=== PATIENT | female | born 1995 | race Caucasian/White ===

== ENCOUNTER 2021-06-18 11:20 | Outpatient (REF) | payer OTHER, SELFPAY | END 2021-06-18 11:21 | disposition home or self-care (01) | LOC: HO.LNP 11:20 | PROVIDERS: Visit Provider Internal Medicine | DX: J06.9 Acute upper respiratory infection, unspecified (principal); Z20.822 Contact with and (suspected) exposure to COVID-19 | CPT/HCPCS: U0003; U0005 ==

== ENCOUNTER 2023-06-01 07:33 | Outpatient (AMB) | payer OTHER, SELFPAY ==
[2023-06-01 07:41] VITALS: BP 110/66; PULSE 79; O2SAT 97; BMI 23.5
--- NOTE | 2023-06-01 07:41 | A.OFFPC_ITS ---
Vital Signs 06/01/23 07:41 Height 5 ft 7 in Weight 150 lb BMI 23.5 BP 110/66 Blood Pressure Location Lt brachial Position Sitting Pulse 79 Pulse Source Pulse Oximeter Pulse Oximetry (%) 97 Oxygen Delivery Method Room Air Intake Visit Reasons: New patient-Requesting physical Intake Note: Pt is here today for a New patient visit PE. 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 Pt moved from [place] in 2020 to attend [employer] school. [place] [facility] Family History Father No problems noted. Mother No problems noted. 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 1. Little interest or pleasure in doing things: several days 2. Feeling down, depressed, or hopeless: several days 3. Trouble falling or staying asleep, or sleeping too much: nearly every day 4. Feeling tired or having little energy: nearly every day 5. Poor appetite or overeating: not at all 6. Feeling bad about yourself - or that you are a failure or have let yourself or your family down: not at all 7. Trouble concentrating on things, such as reading the newspaper or watching television: nearly every day 8. Moving or speaking so slowly that other people could have noticed. Or the opposite - being so fidgety or restless that you have been moving around a lot more than usual: not at all 9. Thoughts that you would be better off or of hurting yourself in some way: not at all Total score: 11 Source: Developed by Drs. Dominick Gutierrez, Cathy Keller, Ga Chairez and colleagues, with an educational barry from [email or web address]. Thrive Questionnaire Date Thrive assessed: 06/01/23 I am a: Patient What is your living situation today?: I have a steady place to live Within the past 12 months, did the food you bought not last and you didn't have the money to get more?: Never true Within the past 12 months, did you worry whether your food would run out before you got money to buy more?: Never true Do you have trouble paying for medicines?: Yes Do you have trouble getting transportation to medical appointments?: No Do you have trouble paying your heating and electricity bill?: No Do you have trouble taking care of your child, family member or friend?: No Do you have trouble with day-to-day activities such as bathing, preparing meals, shopping, managing finances, etc.?: No Are you currently unemployed and looking for a job?: No Are you interested in more education?: Yes Please select the resources that you would like help with: Paying for medicine and Education Currently or been in a relationship where the following occur: no concerns reported AUDIT C Alcohol Use Questionnaire (AUDIT-C) 1. How often do you have a drink containing alcohol?: Monthly or less 2. How many drinks containing alcohol do you have on a typical day when you are drinking?: 1 or 2 3. How often do you have six or more drinks on one occasion?: Never Total Score: 1 UMU-7 AMB Questionnaire UMU-7 Date UMU - 7 assessed: 06/01/23 Feeling nervous, anxious, or on edge: 2 = More than half the days Not being able to stop or control worryin = More than half the days Worrying too much about different things: 2 = More than half the days Trouble relaxin = Several days Being so restless that it is hard to sit still: 0 = Not at all Becoming easily annoyed or irritable: 1 = Several days Feeling afraid as if something awful might happen: 2 = More than half the days Total UMU-7 score (0-4 normal; 5-9 mild; 10-14 moderate; 15-21 severe): 10 Source: Developed by Drs. Dominick Gutierrez, Cathy Keller, Ga Chairez and colleagues, with an educational barry from [email or web address]. Review of Systems Const All systems reviewed & are unremarkable except as noted in HPI and below Reports no additional complaints Eyes Reports no additional complaints ENT Reports no additional complaints Card Reports no additional complaints Resp Reports no additional complaints GI Reports no additional complaints Reports no additional complaints Physical exam (Primary Care) Vital Signs: Last Vital Signs Pulse 79 06/01/23 07:41 BP 110/66 06/01/23 07:41 Pulse Ox 97 06/01/23 07:41 Oxygen Delivery Method Room Air 06/01/23 07:41 BMI result Body Mass Index 23.5 Tobacco/Smoking Status: Tobacco use Status Tobacco use date assessed 06/01/23 06/01/23 07:48 Patient Tobacco Use Status Never used Tobacco 06/01/23 08:38 e-Cigarette/Vaping Use Former Use 06/01/23 08:38 Currently or been in a relationship where the following occur: no concerns reported Const General: no acute distress HENMT Ears: hearing grossly normal bilaterally Face and sinus: Yes normal facial exam Throat: Yes posterior oropharynx normal Eyes General: appearance normal, both eyes and all related structures Neck Neck: Yes no lymphadenopathy and Yes supple Chest Breast/axilla inspection: normal inspection of the breasts Breast/axilla palpation: normal palpation of the breasts Resp Effort & Inspection: normal respiratory effort Auscultation: clear to auscultation bilaterally Cardio Rhythm: regular rhythm Heart sounds: S1 normal heart sound present and S2 normal heart sound present GI Inspection: Yes normal to inspection Palpation (GI): Soft to palpation Percussion: Yes normal to percussion Auscultation: normal bowel sounds Assessment and Plan Assessment & Plan (1) Alopecia: Comment: Androgenic, on spironolactone and dutasteride Code(s): L65.9 - Nonscarring hair loss, unspecified (2) ADHD: Comment: on Cymbalta Code(s): F90.9 - Attention-deficit hyperactivity disorder, unspecified type Plan: f/u with counselor from [place] (3) Normal pelvic exam: Comment: in [place] 2018 Code(s): Z01.419 - Encounter for gynecological examination (general) (routine) without abnormal findings Plan: Pap smear was done today (4) Annual physical exam: Code(s): Z.00 - Encounter for general adult medical examination without abnormal findings Plan: Well-balanced diet regular physical activity discussed with the patient. She will have a fasting blood work today Orders: Orders Complete Blood Count Auto Diff Today Z00.00 - Encounter for general adult medical examination without abnormal findings Comprehensive [place]. Panel Fast Today Z00.00 - Encounter for general adult medical examination without abnormal findings Lipid Panel Today Z00.00 - Encounter for general adult medical examination without abnormal findings TSH reflex Free T4 Today Z00.00 - Encounter for general adult medical examination without abnormal findings DHEA Sulfate Today Z00.00 - Encounter for general adult medical examination without abnormal findings, Z01.419 - Encounter for gynecological examination (general) (routine) without abnormal findings UA w Microscopic Today Z00.00 - Encounter for general adult medical examination without abnormal findings, Z01.419 - Encounter for gynecological examination (general) (routine) without abnormal findings HIV Ab/Ag Today Z00.00 - Encounter for general adult medical examination without abnormal findings, Z01.419 - Encounter for gynecological examination (general) (routine) without abnormal findings Syphilis Screen Today Z00.00 - Encounter for general adult medical examination without abnormal findings, Z01.419 - Encounter for gynecological examination (general) (routine) without abnormal findings CT NG by PCR Today Z00.00 - Encounter for general adult medical examination without abnormal findings, Z01.419 - Encounter for gynecological examination (general) (routine) without abnormal findings Bacterial Vaginosis Panel Today Z00.00 - Encounter for general adult medical examination without abnormal findings, Z01.419 - Encounter for gynecological examination (general) (routine) without abnormal findings Pap Smear Today Z00.00 - Encounter for general adult medical examination without abnormal findings Medications: New duloxetine (Cymbalta) 60 mg PO DAILY 90 caps 3RF dutasteride 0.5 mg PO DAILY 90 caps 3RF spironolactone 200 mg (2 x 100 mg) PO DAILY 90 tabs 3RF Coding Level of Care Code Est Pt Prev Care 18-39y(29109) Diagnoses Alopecia L65.9 ADHD F90.9 Normal pelvic exam Z01.419 Annual physical exam Z00.00
== END 2023-06-01 09:34 | disposition home or self-care (01) ==
PROVIDERS: Visit Provider Internal Medicine
DX: Z00.00 Encounter for general adult medical examination without abnormal findings (principal); L65.9 Nonscarring hair loss, unspecified; F90.9 Attention-deficit hyperactivity disorder, unspecified type
CPT/HCPCS: 99395

== ENCOUNTER 2023-06-01 08:42 | Outpatient (REF) | payer OTHER, SELFPAY ==
[2023-06-03 13:30] LABS: BV Int Neg Control Negative (Negative); BV Int Pos Control Positive (Positive)
== END 2023-06-01 08:43 | disposition home or self-care (01) ==
LOC: HO.LAB 08:42
PROVIDERS: Visit Provider Internal Medicine
DX: Z01.419 Encounter for gynecological examination (general) (routine) without abnormal findings (principal)
CPT/HCPCS: 87480; 87510; 87660

== ENCOUNTER 2023-06-01 08:42 | Outpatient (REF) | payer OTHER, SELFPAY ==
[2023-06-06 21:28] LABS: HPV mRNA E6/E7 Detected (Not Detected)
== END 2023-06-01 08:43 | disposition home or self-care (01) ==
LOC: HO.LNP 08:42
PROVIDERS: Visit Provider Internal Medicine
DX: Z12.4 Encounter for screening for malignant neoplasm of cervix (principal); Z11.51 Encounter for screening for human papillomavirus (HPV)
CPT/HCPCS: 87624; 88142

== ENCOUNTER 2024-04-01 12:56 | Outpatient (REF) | payer OTHER, SELFPAY ==
[2024-04-01 16:32] LABS: MANUAL DIFF FLAG NO
[2024-04-01 16:33] LABS: Basophils Absolute Auto 0.1 X10*3/uL (0.0-0.2); Basophils Percent Auto 0.7 % (0-2); Eosinophils Absolute Auto 0.1 X10*3/uL (0.0-0.4); Eosinophils Percent Auto 0.7 % (0-4); Hematocrit 43.2 % (37.0-47.0); Hemoglobin 15.2 g/dl (12.0-16.0); Imm Gran Abs Auto 0.03 X10*3/uL (0.00-0.03); Imm Gran Pct Auto 0.4 % (0.0-0.4); Lymphocytes Absolute Auto 2.2 X10*3/uL (1.2-4.9); Lymphocytes Percent Auto 25.5 % (20-40); Mean Corpuscular HGB Conc 35.2 g/dl (31.0-35.0); Mean Corpuscular Hemoglobin 32.8 pg (27.0-33.0); Mean Corpuscular Volume 93.3 fL (80.0-98.0); Mean Platelet Volume 9.5 fL (9.4-12.3); Monocytes Absolute Auto 0.5 X10*3/uL (0.1-1.2); Monocytes Percent Auto 5.9 % (2-11); Neutrophils Absolute Auto 5.7 x10*3/uL (2.0-8.3); Neutrophils Percent Auto 66.8 % (45-73); Platelet Count 461 X10*3/uL (160-400); Red Blood Count 4.63 X10*6/uL (4.20-5.50); Red Cell Distribution Width 11.9 % (11.0-16.0); White Blood Count 8.5 X10*3/uL (4.8-10.8)
[2024-04-01 16:57] LABS: Alanine Aminotransferase 10 U/L (0-31); Albumin Level 4.7 g/dL (3.5-5.0); Alkaline Phosphatase 59 U/L (39-117); Anion Gap 15 (12-20); Aspartate Amino Transferase 14 U/L (5-31); Bilirubin Total 0.8 mg/dL (0.0-1.0); Blood Urea Nitrogen 10 mg/dL (9-16); Calcium 10.1 mg/dL (8.4-10.2); Carbon Dioxide 23 mmol/L (22-29); Chloride 100 mmol/L (96-108); Cholesterol 218 mg/dL (<200); Estimated Glomerular Filt Rate > 60; Glucose Fasting 82 mg/dL (60-99); HDL Cholesterol 104 mg/dL (>40); LDL Cholesterol Calculated 102 mg/dL (<100); Potassium 3.9 mmol/L (3.3-5.1); Sodium 134 mmol/L (135-145); Total Protein 8.4 g/dL (6.5-8.0); Triglycerides 61 mg/dL (<150)
[2024-04-01 17:06] LABS: Appearance Urine Clear; Color Urine Yellow; Glucose Urine UA Negative (Negative); Leukocyte Esterase Urine Negative (Negative); Nitrite Urine Negative (Negative); Urine Blood Negative (Negative); Urine Ketones Trace mg/dL (Negative); Urine Protein Negative (Neg-Trace)
[2024-04-01 17:11] LABS: TSH reflex Free T4 1.46 uIU/mL (0.32-4.0)
[2024-04-01 17:12] LABS: Bacteria Urine None Seen (None Seen); Hyaline Casts Urine 0-2 /LPF (0-2); RBC Urine 0-2 /HPF (0-2); Squamous Epithelial Cell Urine 0-2 /HPF (0-2); WBC Urine 0-5 /HPF (0-5)
[2024-04-01 18:21] LABS: CT PCR NOT DETECTED (Not Detect.); NG PCR NOT DETECTED (Not Detect.)
[2024-04-02 08:14] LABS: HIV AB/AG Nonreactive (Nonreactive); HIV Num 1 0.05 S/CO (0.00-0.99)
[2024-04-02 08:15] LABS: Syphilis Screen Nonreactive (Nonreactive)
[2024-04-03 00:10] LABS: DHEA Sulfate 147 mcg/dL (14-349)
== END 2024-04-01 12:57 | disposition home or self-care (01) ==
LOC: HO.HMGCLDS 12:56
PROVIDERS: PCP Internal Medicine; Visit Provider Internal Medicine
DX: Z00.00 Encounter for general adult medical examination without abnormal findings (principal)
CPT/HCPCS: 0353U; 80053; 80061; 81001; 82627; 84443; 85025; 86780; 87389

== ENCOUNTER 2024-12-11 13:08 | Outpatient (AMB) | payer OTHER, SELFPAY ==
[2024-12-11 13:35] VITALS: BP 116/70; PULSE 85; RESP 18; TEMP 36.9; O2SAT 98; BMI 22.2
--- NOTE | 2024-12-11 13:35 | MHC.PC.OV ---
Vital Signs 12/11/24 13:35 Height 5 ft 7 in Weight 142 lb BMI 22.2 BP 116/70 Blood Pressure Location Lt brachial Position Sitting Respiration 18 Pulse 85 Pulse Source Pulse Oximeter Temp 98.5 F Temp Source Oral Pulse Oximetry (%) 98 Oxygen Delivery Method Room Air Intake Visit Reasons: PE Intake Note: Pt is here today for PE. Allergies No Known Allergies Allergy (Verified 12/11/24 13:44) Medication List - Last Reconciled 12/11/24 by Lyndsey Chavez MD bupropion HCl XL 300 mg PO QAM [[place] control PO] dutasteride 0.5 mg PO DAILY spironolactone 200 mg (2 x 100 mg) PO DAILY trazodone 25 mg PO BEDTIME PRN Tobacco use date assessed: 12/11/24 Dental Screening Dental Screen Date: 12/11/24 Did you have a dental visit in the last 12 months?: Yes Did you have a dental problem in the last 6 months where you did not have access to dental care?: No Was dental information given to patient?: Patient has dentist HPI PE HPI Details Pt presents for PE. PFSH Surgical History (Updated 12/11/24 @ 13:48 by CAMILA Haines) No pertinent past surgical history Family History Father No problems noted. Mother No problems noted. 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 1. Little interest or pleasure in doing things: not at all 2. Feeling down, depressed, or hopeless: several days 3. Trouble falling or staying asleep, or sleeping too much: several days 4. Feeling tired or having little energy: not at all 5. Poor appetite or overeating: several days 6. Feeling bad about yourself - or that you are a failure or have let yourself or your family down: several days 7. Trouble concentrating on things, such as reading the newspaper or watching television: several days 8. Moving or speaking so slowly that other people could have noticed. Or the opposite - being so fidgety or restless that you have been moving around a lot more than usual: not at all 9. Thoughts that you would be better off or of hurting yourself in some way: not at all Total score: 5 Depression Screening Interpretation: Negative Depression Screening Done: Yes 36208 - PHQ-9 Billing: Yes Source: Developed by Drs. Dominick Gutierrez, Cathy Keller, Ga Chairez and colleagues, with an educational barry from [employer]. Thrive Questionnaire Date Thrive assessed: 12/11/24 I am a: Patient What is your living situation today?: I have a steady place to live Within the past 12 months, did the food you bought not last and you didn't have the money to get more?: Never true Within the past 12 months, did you worry whether your food would run out before you got money to buy more?: Never true Do you have trouble paying for medicines?: No Do you have trouble getting transportation to medical appointments?: No Do you have trouble paying your heating and electricity bill?: No Do you have trouble taking care of your child, family member or friend?: No Do you have trouble with day-to-day activities such as bathing, preparing meals, shopping, managing finances, etc.?: No Are you currently unemployed and looking for a job?: No Are you interested in more education?: No THRIVE Score: 0 AUDIT C Alcohol Use Questionnaire (AUDIT-C) 1. How often do you have a drink containing alcohol?: 2-4 times a month 2. How many drinks containing alcohol do you have on a typical day when you are drinking?: 3 or 4 3. How often do you have six or more drinks on one occasion?: Less than monthly Total Score: 4 UMU-7 AMB Questionnaire UMU-7 Date UMU - 7 assessed: 06/01/23 Feeling nervous, anxious, or on edge: 1 = Several days Not being able to stop or control worryin = Several days Worrying too much about different things: 3 = Nearly every day Trouble relaxin = Several days Being so restless that it is hard to sit still: 0 = Not at all Becoming easily annoyed or irritable: 1 = Several days Feeling afraid as if something awful might happen: 1 = Several days Total UMU-7 score (0-4 normal; 5-9 mild; 10-14 moderate; 15-21 severe): 8 Source: Developed by Drs. Dominick Gutierrez, Cathy Keller, Ga Chairez and colleagues, with an educational barry from [employer]. UMU-7 Assessment Billing UMU-7 Assessment Tool: UMU-7 Assessment 14279 Review of Systems Const All systems reviewed & are unremarkable except as noted in HPI and below Reports no additional complaints Eyes Reports no additional complaints ENT Reports no additional complaints Card Reports no additional complaints Resp Reports no additional complaints GI Reports no additional complaints Reports no additional complaints Physical exam (Primary Care) Vital Signs: Last Vital Signs Temp 98.5 F 12/11/24 13:35 Pulse 85 12/11/24 13:35 Resp 18 12/11/24 13:35 BP 116/70 12/11/24 13:35 Pulse Ox 98 12/11/24 13:35 Oxygen Delivery Method Room Air 12/11/24 13:35 BMI result Body Mass Index 22.2 Tobacco/Smoking Status: Tobacco use Status Tobacco use date assessed 12/11/24 12/11/24 13:54 Patient Tobacco Use Status Never used Tobacco 12/11/24 13:54 e-Cigarette/Vaping Use Former Use 12/11/24 13:36 PHQ-9: PHQ-9 Score PHQ-9: Total score 5 12/11/24 13:54 Depression Screening Interpretation: Negative Thrive Assessment: Date of Thrive Assessment Date Thrive assessed 12/11/24 12/11/24 13:54 Const General: no acute distress HENMT Head: Yes normal to inspection Ears: TM's normal bilaterally Mouth: Normal oral and palatal mucosa present Throat: Yes posterior oropharynx normal Eyes General: appearance normal, both eyes and all related structures Neck Neck: Yes no lymphadenopathy and Yes supple Resp Effort & Inspection: normal respiratory effort Auscultation: clear to auscultation bilaterally Cardio Rhythm: regular rhythm Heart sounds: S1 normal heart sound present and S2 normal heart sound present GI Inspection: Yes normal to inspection Palpation (GI): Soft to palpation Percussion: Yes normal to percussion Auscultation: normal bowel sounds Coding Level of Care Code Est Pt Prev Care 18-39y(71852) Diagnoses Alopecia L65.9 Annual physical exam Z. ASCUS with positive high risk HPV cervical R87.610; R87.810 Additional Codes UMU-7 Assessment Billing - UMU-7 Assessment Tool: UMU-7 Assessment 02880 ([id number]) PHQ-9 - 35296 - PHQ-9 Billing: Yes ([id number]) Assessment & Plan Assessment & Plan (1) Alopecia: Comment: Androgenic, on spironolactone and dutasteride Code(s): L65.9 - Nonscarring hair loss, unspecified Category: Medical Plan: f/u with dermatology (2) Annual physical exam: Code(s): Z. 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, s/p colposcopy 2023 Code(s): R87.610 - Atypical squamous cells of undetermined significance on cytologic smear of cervix (ASC-US); R87.810 - Cervical high risk human papillomavirus (HPV) DNA test positive Category: Medical Plan: Follow-up with route salesman Orders: Orders Complete Blood Count Auto Diff Today Z00.00 - Encounter for general adult medical examination without abnormal findings Vitamin B12 and Folate Today Z00.00 - Encounter for general adult medical examination without abnormal findings IRON PROFILE Today Z00.00 - Encounter for general adult medical examination without abnormal findings Vitamin D 25-OH Total Today Z00.00 - Encounter for general adult medical examination without abnormal findings UA w Microscopic Today Z00.00 - Encounter for general adult medical examination without abnormal findings Comprehensive [place]. Panel Fast Today Z00.00 - Encounter for general adult medical examination without abnormal findings Lipid Panel Today Z00.00 - Encounter for general adult medical examination without abnormal findings TSH reflex Free T4 Today Z00.00 - Encounter for general adult medical examination without abnormal findings Referrals Dermatology Referral L65.9 - Nonscarring hair loss, unspecified
--- OUTSIDE RECORDS SUMMARY | 2024-12-11 15:55 | XMS_ITS ---
Author Organization [facility] Address [address] [place] [address] Care Team Providers Care Activities Director Name Role Phone Lyndsey Chavez MD Primary Care Provider Unavaila Kaylin Weaver [phone] REASON FOR VISIT Non healing toe Encounters Encounter Location Date Provider Diagnosis [facility] [address] [facility] [address] [place] [id number] 10/06/2024 Kaylin Ferreira Plan Of Treatment No Information Progress Notes * Ila ROGERSDOB:1995 (29 yo F)Acc No.[id number]:10/06/2024 Patient:?Mitzi ROGERSica :1995???Age:29 Y???Sex:Female [address]:[address] [place] [address], [id number] * true * Date:? Generated for Samantha duval/Ann Marie/eTransmitting on:?12/11/2024 03:54 PM EST
--- OUTSIDE RECORDS SUMMARY | 2024-12-11 15:55 | XMS_ITS ---
Author Organization [facility] Ethan rubio [place] Address [address] [facility] [place] [address] Care Team Providers Care Office Clerk Name Role Phone Lyndsey Chavez MD Primary Care Provider UnavailKaylin Naidu Unavailable [phone] Allergies No Known Allergies REASON FOR VISIT Ingrown Nail Medications Medication SIG (Take, Route, Fr equency, Duration) Notes Start Date End Date Status Cymbalta 20 MG 1 capsule Orally Once a day 20mg Active Vyvanse Active traZODone HCl 25 mg Active Propranolol HCl Acti ve Spironolactone 200 mg Activ e Wellbutrin XL 300 MG 1 tablet in the mor chema Orally Once a day Active Avodart 0.5 MG 1 capsule Orally Once a day Active Social History Tobacco Use: Social History Observation Description Date Details (start date - stop date) Never Smoker NA - NA Tobacco Use/Smoking Question Answer Notes Are you a: nonsmoker Additional Findings: Tobacco Non-User Current no n-smoker Alcohol Screen Question Answer Notes Did you have a drink containing alcohol in the p ast year? Yes Points 0 Interpretation Negative Tobacco use other than smoking: Question Answer Notes Are you an other tobacco user? No Vital Signs Height 5ft 7in in 10/09/2024 Weight 140 lbs 10/09/2024 BMI 21.92 kg/m2 10/09/2024 Blood pressure systolic 118 mm Hg 10/09/19 25 Blood pressure diastolic 71 mm Hg 025 Encounters Encounter Location Date [facility] [place] [address] 10/09/2024 Kaylin Ferreira Ingrown nail L60.0 and Dystrophic nail L60.3 Assessments Encounter Date Diagnosis (ICD Code) Assessment Notes Treatment Notes Treatment Clinical Notes Section Notes 10/09/2024 Ingrown nail (ICD-10 - L60.0) 10/09/2024 Dystrophic nail (ICD-10 - L60.3) Plan Of Treatment Next Appt Details Follow Up: prn, Reason: Progress Notes * Ila ROGERSDOB:1995 (29 yo F)Acc No.[id number]:10/09/2024 Progress Note Patient:?Ila ROGERS Provider:?Kaylin Ferreira DPM :1995???Age:29 Y???Sex:Female D ate:10/09/2024 Address:[address] [place], [place] [id number] Pcp:Lyndsey Chavez MD Subjective: * Chief Complaints: * ???Ingrown Nail * HPI: ???Ingrown toenail:?Nature:?tenderness.?Location:?Great toe, Right foot.?Aggravated by:?any pressure, shoes.?Treatments:?previous NA?.? * ROS:?General/Constitutional:?Nausea?denies.?Vomiting?denies.?Hunger Thirst?denies.?Loss appetite?denies.?Chills?denies.?Fatigue?denies.?Fever?denies.?Night Sweats?denies.?Unexplained weight loss?denies.?Unexplained weight gain?denies.?HEENTM:?Dentures?denies.?Dizziness?denies.?Glasses/contacts?admits.?Retinopathy?de nies.?Blurred/double vision?denies.?TMJ?denies.?Discharge/drainage?denies.?Implants?denies.?Sore throat?denies.?Dental implants?denies.?Hard of hearing ?denies.?Difficulty chewing/swallowing/speaking?denies.?Nose bleeds?denies.?Sore mouth?denies.?Respiratory:?On Oxygen?denies.?Pneumonia/pleurisy?denies.?Bronchitis?denies.?Emphysema?denies.?C oughing?denies.?Cough blood?denies.?Shortness of breath?denies.?Wheezing?denies.?Cardiovascular:?Pacemaker?denies.?MVP?denies.?WPW?denies.?CHF?denies.?Heart attack?denies.?Septal defect?denies.?Rapid beat?denies.?Chest pain ?denies.?Atrial Fib.?denies.?Murmur/Palpitations?denies.?Gastrointestinal:?Hemorrhoids?denies.?Stomach/Abdominal pain?denies.?Dark blood stool?denies.?Irritable bowel ?denies.?Constipation?denies.?Diarrhea?denies.?Hematology:?Swelling?denies.?Clots?denies.?Varicose Veins?denies.?Bruising?denies.?Bleeding problem?denies.?Genitourinary:?Blood urine?denies.?Frequent/Painfu/urination/bladder control?denies.?Kidney stones?denies.?Infection (UTI)?denies.?Nephropathy?denies.?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 * Medical History:? * Surgical History:?No Surgica l History documented. * Hospitalization/Major Diagno stic Procedure:?No Hospitalization History. * Family History:?Mother: christian walden.?Father: alive.? * Social History:?Tobacco Use:?Tobacco Use/Smoking?Are you a:?nonsmoker ?Additional Findings: Tobacco Non-User?Current non-smoker ?Tobacco use other than smoking?Are you an other tobacco user??No ???Drugs/Alcohol:?Drugs?Have you used drugs other than those for medical reasons in the past 12 months??Yes ?Marijuana??Yes Daily ?Alcohol Screen?Did you have a drink containing alcohol in the past year??Yes ?Points?0 ?Interpretation?Negative ???Miscellaneous:?Caffeine: yes, frequency:. ?Children: no. ?Exercise: yes. ?Marital status: single. ?Occupation: [employer]. * Medications:?TakingVyvanse P ropranolol HCl traZODone HCl , Notes to Pharmacist: 25 mgSpironolactone , Notes to Pharmacist: 200 mgAvodart 0.5 MG Capsule 1 capsule Orally Once a day Wellbutrin XL 300 MG Tablet Extended Release 24 Hour 1 tablet in the morning Orally Once a day Cymbalta 20 MG Capsule Delayed Release Particles 1 capsule Orally Once a day , Notes to Pharmacist: 20mgMedication List reviewed and reconciled with the patientTaking Vamarjite Taking Propranolol HCl Taking traZODone HCl , Notes to Pharmacist: 25 mgTaking Spironolactone , Notes to Pharmacist: 200 mgTaking Avodart 0.5 MG Capsule 1 capsule Orally Once a day Taking Wellbutrin XL 300 MG Tablet Extended Release 24 Hour 1 tablet in the morning Orally Once a day Taking Cymbalta 20 MG Capsule Delayed Release Particles 1 capsule Orally Once a day , Notes to Pharmacist: 20mgMedication List reviewed and reconciled with the patient * Allergies:?N.K.D.A.yes[Aller gies Verified] Objective: * Vitals:?Ht: 5ft 7in, Wt:140, BMI:21.92, Shoe size: 7, BP:118/71mm Hg, Ht-cm: 170.18 cm, Wt-k.5 kg. * Examination: ???Ingrown Nail: ?INSPECTION:?Reveals NO nail incurvation, mild? pain on palpation, medial?nail border, T5, thickened hypertrophic cuticle skin, no open wounds or signs of infection.?General Examination: ?GENERAL APPEARANCE:?Reveals a pleasant, alert, well nourished, well- developed, well hydrated individual, who demonstrates proper attention to hygiene/body habitus, and is in no acute distress, Pt serves as own historian for office visit today.?ORIENTED:?person, place, and time.?Vascular: ?DP PULSES (B):?3/4, B/L.?PT PULSES (B):?3/4, B/L.?CAPILLARY FILL TIME:?immediate, all digits, B/L.?TROPHIC CONDITION-TEXTURE/ELASTICITY/TURGOR/HAIR GROWTH (B):?normal, B/L.?TEMPERTURE GRADIENT (C):?normal, warm to cool, proximal to distal, B/L, B/L.?Neurological: ?SENSORY:?Neurological exam reveals intact sensorium, pain sensation normal, vibration sensation intact, pinprick sensation is normal in the lower extremities, Pt denies, anesthesia, burning, paresthesia, tingling, B/L.?Nails: ?NAILS are:?TA, T5, dystrophic, discolored.? Assessment: * Assessment: 1.?Ingrown nail - L60.0 (Usha delaney)???2.?Dystrophic nail - L60.3??? Plan: * Treatment: * Procedure Codes:? * Preventive Medicine:? ??Counseling:?Discussion:?-13: Office or other outpatient visit for the evaluation and management of an established patient, which required a medically appropriate history and/or examination and LOW level of DECISION MAKING for: 1 STABLE ACUTE UNCOMPLICATED PROBLEM, 2 OR MORE MINOR PROBLEMS, OR 1 STABLE CHRONIC PROBLEM, THAT POSE(S) A LOW RISK FOR MORBIDITY/MORTALITY. The visit on the day of the encounter encompassed interpreting the data and educating the patient as to the nature of their condition, treatment options available according to their individual PMH, meds, allergies, and overall health/living conditions, as well as any potential risks or complications that may occur from a failure to adhere to, and participate in, the recommended course of therapy. The discussion included a complete verbal, and/or written explanation of the examination results, any x-rays taken, the proposed diagnosis, and outline of the treatment plan. A schedule for future care needs was also explained. The patient verbalized an understanding of the instructions at this time and agreed to be an active participant in their treatment. If the patient should think of any questions or concerns after the visit, I have encouraged the patient to call the office.?Abscess/Paraonychia/Ingrown Nails:?We discussed the possible etiologies (genetic, improper nail care, shoe gear, nail trauma) which may lead to ingrown nails and/or paronychial infections. We discussed and reviewed palliative/nonsurgical/deferring definitive treatment (vs) undergoing the treatment procedures of nail avulsion(s) or PNA, which may prevent recurrence and give more lasting results. The possible risks/complications such as worsened condition/delayed healing/nonhealing/failure/recurrence/infection, the potential benefits/advantages of decreased pain/deformity, as well as alterative treatment options including applying nail softening agents/nail groove packing were discussed. No guarantees were given regarding any outcome for any procedure. The patient was educated in the length of time for the affected nail to regrow once completely healed from a nail avulsion procedure. Once the condition has completely healed, the patient was consulted on proper nail care. Patient questions such as details of each procedure, varying time to heal, activity post procedure, and shoe gear were discussed and the answers were verbally confirmed fully understood. Discussed that pt's pain is due to thickened cuticle, no signs of ingrown nail, did offer to anestatize the toe and debride nail border, pt defers, thickened skin debrided at medial nail border right great toe.?Fungal Nail Counseling:?The patient was counseled on the diagnosis, potential etiologies (including, but not limited to, environmental factors, genetic, immune deficiency), and the multiple treatment options for Onychomycosis. We discussed the risks and benefits of each option from performing no treatment, to ultraviolet light shoe treatment, to laser nail treatment, to applying topical antifungals, to taking oral antifungal medication, to surgical removal of the involved nail(s) with or without performing a matricectomy, or any combination thereof. We discussed the advantages and disadvantages of each of possible treatment and importance for adherence to all the recommended therapies for optimum success. This includes the necessity for weekly emery board self nail home debridements, and control the nail and skin environment as much as possible by only using a fresh, dry pair of shoes/socks each day, as well as keeping the skin as dry as possible through the use of sprays/powders if necessary. The patient was instructed to discard the emery board after use to prevent reinfection of the involved nail(s). We discussed the mycological and visual clinical effectiveness of topical vs oral antifungal treatments as well as each ones potential side effects and/or any patient- specific medication interactions. We discussed the reasons behind the important requirement of regular liver function testing with oral antifungal therapy for safety. Patient questions regarding use, dosage, successful outcomes, blood tests, and possible pharmaceutical interactions were reviewed and the patient verbalized that all answers were clearly understood.? * Follow Up:?prn * Images: * Sign off status: Completed true * Provider:Santino Ferreira DPM Date:?11/2024 Generated for Samantha duval/Ann Marie/Ferny on:?12/11/2024 03:54 PM EST History and Physical Notes * HPI (History of Present Illness) Category Sub-Category Detail Notes Category Not es Ingrown toenail Nature: tenderness Location: Great toe, Right raquel t Treatments: previous NA Aggravated by: any pressure, shoes Examination Category Sub-Category Detail Notes Category Not es Ingrown Nail INSPECTION: Reveals NO nail incurvation, mild pain on palpation, medial nail border, T5, thickened hypertrophic cuticle skin, no open wounds or signs of infection Neurological SENSORY: Neurological exa m reveals intact sensorium, pain sensation normal, vibration sensation intact, pinprick sensation is normal in the lower extremities, Pt denies, anesthesia, burning, paresthesia, tingling, B/L General Examination GENERAL APPEARANCE: Reveals a pleasant, alert, well nourished, well-developed, well hydrated individual, who demonstrates proper attention to hygiene/body habitus, and is in no acute distress, Pt serves as own historian for office visit today ORIENTED: person, place, and t jaison Vascular DP PULSES (B): 3/4, B/L PT PULSES (B): 3/4, B/L CAPILLARY FILL TIME: immediate, all digi ts, B/L TEMPERTURE GRADIENT (C): normal, warm to cool, proximal to distal, B/L, B/L TROPHIC CONDITION-TEXTURE/ELASTICITY/TURGOR/HAIR GROWTH (B): normal, B/L Nails NAILS are: TA, T5, dystrophic, discolor ed
--- OUTSIDE RECORDS SUMMARY | 2024-12-11 15:55 | XMS_ITS ---
Author Organization [facility] Address [address] [place] [address] Care Team Providers Care Telecommunications Specialist Name Role Phone Scott ROSENBERG, Lyndsey Primary Care Provider UnavailKaylin Naidu [phone] Encounters Encounter Location Date Provider Diagnosis [address] [address] 09/26/2024 Kaylin Ferreira Plan Of Treatment No Information Progress Notes * Ila ROGERSDOB:1995 (29 yo F)Acc No.[id number]:09/26/2024 Progress Notes Patient:Ila DOTY Provider:?Kaylin Ferreira DPM :1995???Age:29 Y???Sex:Female D ate:09/26/2024 Address:[address] [place], [place] [address] Pcp:Lyndsey Chavez MD Subjective: * Chief Complaints: * ??? * Medical History:? Objective: * Vitals:? Assessment: Plan: * Treatment: * Images: * The named appointment provid er may or may not be the originator of this progress note, and it is not deemed complete until electronically signed by the appointment provider. Sign off status: Pending * Provider:?Kaylin Ferreira DPM Date:? Generated for Urvashii simin/Ann Marie/eTransmitting on:?12/11/2024 03:54 PM EST
--- OUTSIDE RECORDS SUMMARY | 2024-12-11 15:55 | XMS_ITS | Clinical Summary ---
Author Organization [facility] Address [address] [place] [id number] Phone Care Team Providers Care Social Worker Assistant Name Role Phone Unavailable Primary Care Provider Unavailabl e Immunizations Immunization Administration Dates Next Due DTaP 11/16/2002,10/16/1998,03/16/1998 ,1997,1997 DTaP 5 11/16/2002,10/16/1998,03/16/1998 ,1997,1997 Hep B, ped/adol 08/02/2005,07/22/2001,06/15/2001 Hib (PRP-T) 12/06/1998,03/08/1998,1997 IPV 11/08/2002,07/08/1999,03/08/1998 ,1997,1997 MMR 06/15/2001 Measles 08/08/1999,03/16/1998 Tdap 04/20/2009 Varicella 01/13/2008,07/16/2001 Social History Tobacco Use Types Packs/Day Years Used Date Smoking Tobacco: Never Assessed Comments Unknown Sex and Gender Information Value Date Recorded Sex Assigned at Not on file Legal Sex Female 2:59 PM EST Gender Identity Not on file Sexual Orientation Not on file Last Filed Vital Signs Vital Sign Reading Time Taken Comments Blood Pressure 98/60 10/31/2012 12:00 AM EST Pulse 96 10/31/2012 12:00 AM EST Temperature 36.3 ??C (97.4 ??F) 10/31/2012 12:[address] Respiratory Rate - - Oxygen Saturation - - Inhaled Oxygen Concentration - - Weight 57.3 kg (126 lb 6.2 oz) 10/31/2012 12:00 AM EST Height 163.2 cm (5' 4.25 ) 10/31/2012 12:[address] Body Mass Index 21.53 10/31/2012 12:00 AM EST Plan of Treatment Health Maintenance Due Date Last Done Comments DTaP,Tdap,and Td Vaccines (7 - Td or Tdap) 04/20/2019 04/20/2009, 11/16/2002, 11/16/2002, Additional history exists Influenza Vaccines (#1) 2024 COVID-19 Vaccine ( season) 2024 HIB Vaccines Completed 12/06/1998, 10/1997, 1997 MMR Vaccines Completed 06/15/2001 IPV Vaccines Completed 11/08/2002, 10/1998, 03/08/1998, Additional history exists Hepatitis B Vaccines Completed 08/02/2005, 07/22/2001, 06/15/2001 Varicella Vaccines Completed 01/13/2008, 07/16/2001 HPV Vaccines Aged Out No longer eligi ble based on patient's age to complete this topic Hepatitis A Vaccines Aged Out No long er eligible based on patient's age to complete this topic Men B Vaccine Aged Out No longer elig ible based on patient's age to complete this topic Meningococcal Vaccine Aged Out No natasha savannah eligible based on patient's age to complete this topic Pneumococcal Vaccine Aged Out No long er eligible based on patient's age to complete this topic
--- OUTSIDE RECORDS SUMMARY | 2024-12-11 15:55 | XMS_ITS | Patient Health Record ---
Author Organization [facility] Ethan rubio [place] Address [address] [place] [address] Care Team Providers Care Diabetes Trainer Name Role Phone Lyndsey Chavez MD Primary Care Provider Kaylin Reddy Unavailable [phone] Allergies No Known Allergies Reason For Referral No Information Medications Medication SIG (Take, Route, Fr equency, Duration) Notes Start Date End Date Status Cymbalta 20 MG 1 capsule Orally Once a day 20mg Active Wellbutrin XL 300 MG 1 tablet in the mor chema Orally Once a day Active Avodart 0.5 MG 1 capsule Orally Once a day Active Vyvanse Active traZODone HCl 25 mg Active Propranolol HCl Acti ve Spironolactone 200 mg Activ e Social History Tobacco Use: Social History Observation [...] an other tobacco user? No Vital Signs Blood pressure diastolic 71 mm Hg 10/09/2024 Height 5ft 7in in 10/09/2024 Blood pressure systolic 118 mm Hg 10/09/2024 Weight 140 lbs 10/09/2024 BMI 21.92 kg/m2 10/09/2024 Encounters Encounter Location Date Provider Diagnosis [facility] [address] [place] [address] 06/17/2024 Kaylin Perica Ingrown nail L60.0 ; Pain in left toe(s) M79.675 and Pain in right toe(s) M79.[address] [facility] [place] [address] 09/08/2024 [facility] L60.[facility] [address] 10/09/2024 Kaylin Perica Ingrown nail L60.0 and Dystrophic nail L60.3 [facility] [address] [place] [address] 08/05[facility]2024 [facility] [address] [place] [address] 08/29/2024 [facility] [place] [address] 10/06/2024 Kaylin Newmana Assessments Encounter Date Diagnosis (ICD Code) Assessment Notes Treatment Notes Treatment Clinical Notes Section Notes 06/17/2024 Ingrown nail (ICD-10 - L60.0) 09/08/2024 Ingrown nail (ICD-10 - L60.0) 10/09/2024 Ingrown nail (ICD-10 - L60.0) 10/09/2024 Dystrophic nail (ICD-10 - L60.3) 06/17/2024 Pain in left toe(s) (ICD-10 - M79.675) 06/17/2024 Pain in right toe(s) (ICD-10 - M79.674) Plan Of Treatment No Information Insurance Providers Payer Name Payer Address Payer Phone Subscriber Number Group Number Insured Name Patient Relationship to Insured Coverage Start Date Coverage End Date [facility] [address] [place], [place] [id number] Ila Rogers Self - patient is the insured Medical (General) History Medical History History ICD Code Anxiety Depression Alopecia
--- OUTSIDE RECORDS SUMMARY | 2024-12-11 15:55 | XMS_ITS | Data Portability ---
Author Organization DENISE Escobar s [address] Address [address] [place] [address] Assessment No assessment recorded. Plan of Treatment Reminders Order Date Submit Date Provider Last Modified By Organization Details Last Modified Time Details Appointments None recorded. Lab None recorded. Referral None recorded. Procedures None recorded. Surgeries None recorded. Imaging None recorded. Medication Orders fexofenadin e-pseudoeph edrine ER 180 mg-240 mg tablet,ext. release 24 hr 2022 023 [id number], [address] [place], [address], 3 11:23:54 Allergy Relief (fluticason e) 50 mcg/actuati on nasal spray,suspe nsion 2022 023 [id number], [address] [place], [address], 3 11:23:54 amoxicillin 875 mg-potassiu m clavulanate 125 mg tablet 2022 023 [id number], [address] [place], [address], 3 11:23:53 Patient TargetsNo targets recorded. Patient Instructions Encounter Date Encounter Id Patient Instructions Last Modified By Organization Details Last Modified Time 02/03/2023 [id number] An ear infection may start with a cold and affect the middle ear (otitis media). It can hurt a lot. Most ear infections clear up on their own in a couple of days and do not need antibiotics. Also, antibiotics do not work against viruses, which may be the cause of your infection. Regular doses of pain relievers are the best way to reduce your fever and help you feel better. How can you care for yourself at home? Take pain medicines exactly as directed. If the doctor gave you a prescription medicine for pain, take it as prescribed. If you are not taking a prescription pain medicine, take an ikxh-nos-kkkxezw medicine, such as acetaminophen (Tylenol), ibuprofen (Advil, Motrin), or naproxen (Aleve). Read and follow all instructions on the label. Do not take two or more pain medicines at the same time unless the doctor told you to. Many pain medicines have acetaminophen, which is Tylenol. Too much acetaminophen (Tylenol) can be harmful. Plan to take a full dose of pain reliever before bedtime. Getting enough sleep will help you get better. Try a warm, moist face cloth on the ear. It may help relieve pain. If your doctor prescribed antibiotics, take them as directed. Do not stop taking them just because you feel better. You need to take the full course of antibiotics. Not available 02/03/2023 11:23:49 Sinusitis is an infection of the lining of the sinus cavities in your head. Sinusitis often follows a cold. It causes pain and pressure in your head and face. In most cases, sinusitis gets better on its own in 1 to 2 weeks. But some mild symptoms may last for several weeks. Sometimes antibiotics are needed. if you are having problems. It's also a good idea to know your test results and keep a list of the medicines you take. How can you care for yourself at home? Take an khnl-qqr-awwhaax pain medicine. Avoid Ibuprofen, Aleve and Aspirin if . If the doctor prescribed antibiotics, take them as directed. Do not stop taking them just because you feel better. You need to take the full course of antibiotics. Be careful when taking heuu-ijl-iyxnhxy cold or influenza (flu) medicines and Tylenol at the same time. Many of these medicines have acetaminophen, which is Tylenol. Read the labels to make sure that you are not taking more than the recommended dose. Too much acetaminophen (Tylenol) can be harmful. Breathe warm, moist air from a steamy shower, a hot bath, or a sink filled with hot water. Avoid cold, dry air. Using a humidifier in your home may help. Follow the directions for cleaning the machine. Use saline (saltwater) nasal washes. This can help keep your nasal passages open and wash out mucus and bacteria. You can buy saline nose drops at a grocery store or drugstore. Or you can make your own at home by adding 1 teaspoon (5 millilitres) of salt and 1 teaspoon (5 millilitres) of baking soda to 2 cups (500 mL) of distilled water. If you make your own, fill a bulb syringe with the solution, insert the tip into your nostril, and squeeze gently. Blow your nose. Put a hot, wet towel or a warm gel pack on your face 3 or 4 times a day for 5 to 10 minutes each time. Try a decongestant nasal spray like oxymetazoline (Drixoral). Do not use it for more than 3 days in a row. Using it for more than 3 days can make your congestion worse. Not available 02/03/2023 11:23:36 Reason for Referral None Reported. Problems Name Problem SNOMED Code Status Onset Date Resolution Date Notes Provider Name and Address Organization Details Recorded Time Anxiety 64646996 Active 2022 [facility] 3 10:39:53 Attention deficit hyperactivity disorder 390181518 Active 2022 DENISE [facility] 3 10:39:59 Problem Notes None recorded. Medical Equipment None Reported. Allergies No known drug allergies Medications Name Sig Start Date Stop Date Status Note LastModified by Organization Details LastModified Time triamcinolon e acetonide 0.025 % topical cream active Not Available Not Available Not Available amoxicillin 875 mg-potassium clavulanate 125 mg tablet Take 1 tablet twice a day by oral route for 10 days. 2022 active Not Available Not Available Not Avai lable fexofenadine -pseudoephed rine ER 180 mg-240 mg tablet,ext.r elease 24 hr Take 1 tablet every day by oral route in the evening for 10 days. 2022 active Not Available Not Available Not Avai lable spironolacto ne active Not Available Not Available Not Available Ritalin active Not Available Not Avail able Not Available dutasteride active Not Available Not A vailable Not Available Cymbalta active Not Available Not Avai lable Not Available Allergy Relief (fluticasone ) 50 mcg/actuatio n nasal spray,suspen [place] 1 spray every day by intranasal route as directed for 30 days. 2022 active Not Available Not Available Not Avai lable Vitals Date Recorded Body height Body mass index (BMI) Body weight Pain severity - 0-10 verbal numeric rating [Score] - Reported Oxygen saturation Oxygen saturation in Arterial blood by Pulse oximetry Heart rate Respiratory rate Body temperature Systolic blood pressure Diastolic blood pressure Provider Name and Address Organization Details Last Updated DateTime 170.18 cm 21.9 kg/m2 17062.9 3 g 0 98 % 98 % 72 /min 16 /min 98.5 [degF] 106 mm[Hg] 69 mm[Hg] THERESA WALKER - [employer] 10:41:51 Social History Question Answer Notes LastModified by Organizat ion Details LastModified Time Tobacco Smoking Status Former Smoker THERESA woo PA De[facility] 02/03/2023 10:40:52 What Is Your Level Of Alcohol Consumption? Occasional [email or web address] Information not available 02/03/2023 Which Illicit Or Recreational Drugs Have You Used? Marijuana [email or web address] Information not available 02/03/2023 When Did You Quit Smoking? 1-5yearssincel astcigarette [email or web address] Information not available 02/03/2023 Do You Use Any Illicit Or Recreational Drugs? Yes [email or web address] Information not available 02/03/2023 Have You Recently Traveled Abroad? No [email or web address] Information not available 02/03/2023 Do You Or Have You Ever Used Any Other Forms Of Tobacco Or Nicotine? No [email or web address] Information not available 02/03/2023 Sex: Unknown Functional Status None recorded. Mental Status None recorded. Family History Relationship Description Onset Age of this Age Resolved Age Notes LastModified by Organization Details LastModified Time Father No current problems or disability [email or web address] Not available 02/03 10:40:27 Mother No current problems or disability [email or web address] Not available 02/03 10:40:27 Medical History No medical history recorded. Gynecological HistoryNo gynecological history recorded. Obstetrics History GPAL:G 0 P 0 0 0 0 Past Encounters Encounter ID Performer Location Encounter Start Date Encounter Closed Date Diagnosis/Indication Diagnosis SNOMED-CT Code Diagnosis ICD10 Code Diagnosis Note [id number] [place] Ocho[place] [address] [address] 02/03/2023 10:28:28 02/03/2023 11:30:42 Acute sinusitis 39318210 J01.90 Lateral ce rvical lymphadenopathy 398001828 R59.0 Health Concerns Section Related Observation LastModified by Organization Detai ls LastModified Time None Recorded Concern Status LastModified by Organization Details LastModified Time None Recorded Advance Directives Directive None Recorded Payers Encounter Date Sequence Insurance Name Policy Number Policy Jose Covered Member ID Jose Member ID Guarantor Name 02/03/2023 [id number] Notes Date Note Type Note Provider Name and Address Organization Details Recorded Time 3 text/html Neck UCReported bypatient.source of patient informationInformation obtained from patient; Patient arrived at Urgent Care ambulatory Location:left; posterior Quality:superficial; worsening; 2-3 cm round , mobile swelling x 1 week. non-tender upon palpation. Severity:no pain Duration:7 days Timing:gradual Context:cannot identify Alleviating Factors:nothing helps Aggravating Factors:cannot identify Associated Symptoms:no weakness; no numbness; no tingling; no redness; no warmth; no ecchymosis; no catching/locking; no popping/clicking; no buckling; no grinding; no instability; no radiation down arm; no fever; no chills;swelling Previous Surgery:none Prior Imaging:none Previous Injections:none Previous PT:none Duarte Ochoa NP [address] [place], [address], [place] - [facility] 02/03/2023 11:24:18 OBGyn Episode No OBEpisode recorded.
== END 2024-12-11 14:49 | disposition home or self-care (01) ==
PROVIDERS: PCP Internal Medicine; Visit Provider Internal Medicine
DX: L65.9 Nonscarring hair loss, unspecified (principal); Z00.00 Encounter for general adult medical examination without abnormal findings; R87.610 Atypical squamous cells of undetermined significance on cytologic smear of cervix (ASC-US); R87.810 Cervical high risk human papillomavirus (HPV) DNA test positive

== ENCOUNTER → 2024-12-11 13:08 | Outpatient (BNVA) | payer OTHER, SELFPAY | PROVIDERS: PCP Internal Medicine; Visit Provider Internal Medicine | DX: Z00.00 Encounter for general adult medical examination without abnormal findings (principal); L65.9 Nonscarring hair loss, unspecified; R87.610 Atypical squamous cells of undetermined significance on cytologic smear of cervix (ASC-US); R87.810 Cervical high risk human papillomavirus (HPV) DNA test positive | CPT/HCPCS: 96127 ==

== ENCOUNTER 2024-12-30 08:07 | Outpatient (REF) | payer OTHER, SELFPAY ==
[2024-12-30 10:42] LABS: MANUAL DIFF FLAG NO
[2024-12-30 10:49] LABS: Basophils Percent Auto 0.6 % (0-2); Eosinophils Absolute Auto 0.1 X10*3/uL (0.0-0.4); Eosinophils Percent Auto 0.7 % (0-4); Hematocrit 42.5 % (37.0-47.0); Hemoglobin 14.6 g/dl (12.0-16.0); Imm Gran Abs Auto 0.01 X10*3/uL (0.00-0.03); Imm Gran Pct Auto 0.1 % (0.0-0.4); Lymphocytes Absolute Auto 1.8 X10*3/uL (1.2-4.9); Lymphocytes Percent Auto 26.3 % (20-40); Mean Corpuscular HGB Conc 34.4 g/dl (31.0-35.0); Mean Corpuscular Hemoglobin 32.1 pg (27.0-33.0); Mean Corpuscular Volume 93.4 fL (80.0-98.0); Mean Platelet Volume 9.5 fL (9.4-12.3); Monocytes Absolute Auto 0.4 X10*3/uL (0.1-1.2); Monocytes Percent Auto 5.5 % (2-11); Neutrophils Absolute Auto 4.5 x10*3/uL (2.0-8.3); Neutrophils Percent Auto 66.8 % (45-73); Platelet Count 425 X10*3/uL (160-400); Red Blood Count 4.55 X10*6/uL (4.20-5.50); Red Cell Distribution Width 11.3 % (11.0-16.0); White Blood Count 6.7 X10*3/uL (4.8-10.8)
[2024-12-30 11:49] LABS: Alanine Aminotransferase 15 U/L (0-31); Albumin Level 4.5 g/dL (3.5-5.0); Alkaline Phosphatase 53 U/L (39-117); Anion Gap 15 (12-20); Aspartate Amino Transferase 17 U/L (5-31); Blood Urea Nitrogen 13 mg/dL (9-16); Calcium 9.6 mg/dL (8.4-10.2); Carbon Dioxide 21 mmol/L (22-29); Chloride 102 mmol/L (96-108); Cholesterol 173 mg/dL (<200); Estimated Glomerular Filt Rate > 60; Glucose Fasting 91 mg/dL (60-99); HDL Cholesterol 92 mg/dL (>40); Iron 233 mcg/dL (30-160); LDL Cholesterol Calculated 67 mg/dL (<100); Percent Iron Saturation 60 % (15-50); Potassium 4.1 mmol/L (3.3-5.1); Sodium 134 mmol/L (135-145); Total Iron Binding Capacity 389 mcg/dL (228-428); Total Protein 7.7 g/dL (6.5-8.0); Triglycerides 70 mg/dL (<150); Unsaturated Iron Binding 156 ug/dL
[2024-12-30 12:10] LABS: TSH reflex Free T4 3.12 uIU/mL (0.32-4.0); Vitamin D 25-OH Total 34.1 ng/mL (>30)
[2024-12-30 12:24] LABS: Folate 10.1 ng/mL (> or = 4.0); Vitamin B12 327 pg/mL (200-900)
== END 2024-12-30 08:08 | disposition home or self-care (01) ==
LOC: HO.HMGCLDS 08:07
PROVIDERS: PCP Internal Medicine; Visit Provider Internal Medicine
DX: Z00.00 Encounter for general adult medical examination without abnormal findings (principal)
CPT/HCPCS: 36415; 80053; 80061; 82306; 82607; 82746; 83540; 84443; 85025

== ENCOUNTER 2024-12-31 08:20 | Outpatient (REF) | payer OTHER, SELFPAY ==
[2024-12-31 10:22] LABS: Appearance Urine Clear; Color Urine Yellow; Glucose Urine UA Negative (Negative); Leukocyte Esterase Urine Negative (Negative); Nitrite Urine Negative (Negative); PH 6.5 (5.0-9.0); Specific Gravity - Urine 1.015 (1.005-1.025); Urine Blood Negative (Negative); Urine Ketones Negative (Negative); Urine Protein Negative (Neg-Trace)
[2024-12-31 10:29] LABS: Bacteria Urine None Seen (None Seen); Hyaline Casts Urine 0-2 /LPF (0-2); RBC Urine 0-2 /HPF (0-2); Squamous Epithelial Cell Urine 0-2 /HPF (0-2); WBC Urine 0-5 /HPF (0-5)
== END 2024-12-31 08:21 | disposition home or self-care (01) ==
LOC: HO.HMGCLNP 08:20
PROVIDERS: PCP Internal Medicine; Visit Provider Internal Medicine
DX: Z00.00 Encounter for general adult medical examination without abnormal findings (principal)
CPT/HCPCS: 81001